=== PATIENT | female | born 1950 | race Caucasian/White ===

== ENCOUNTER → 2016-11-01 | Outpatient (CLI) | payer BC ==
[~2016-11-01] MED LIST: ACYCLOVIR; ADDR10T PO; BUPR150T7 PO; CATHETER FLUSH 10 ML SYR IV PRN; CHOL500026 PO; CLIN300C11 PO; CYAN1TAB50 SL; DOXY100C42 PO; DULO60CA6 PO; ESTROGEN PATCH; FENTERMINE; FLUC200T PO; HYDR200T46 PO; IOHEXOL 350 MG/ML 100 ML (OMNIPAQUE 350) VIAL IV ONE; LACT1CAP8 PO; LEVO500T78 PO; LEVO75TA57 PO; LEVOTHYROXINE; LIOT5TAB6 PO; MECL12.579 PO; MUPI15CR TP; NS 100 ML (IVPB) BAG IV ONE; ONDA-42 PO; PHEN37.555 PO; PREG50C PO; SPIR50TA27 PO; TOPI25CA2 PO; VIVELLE
--- NOTE | 2016-11-01 13:03 | Diagnostic Imaging Report ---
PROCEDURE: CT neck soft tissue with and without contrast. TECHNIQUE: Helically acquired axial images were obtained through the neck both before and after the administration of intravenous contrast. INDICATION: Elevated PTH. FINDINGS: The previous CT neck exam performed on 10/11/2015 failed to show any sign of an acute abnormality of the neck. There was opacification of the left maxillary antrum consistent with sinusitis. On this study, there is no mass or adenopathy identified to indicate an acute abnormality. There is no sign of a soft tissue fullness about the thyroid gland to suggest a parathyroid adenoma that could account for the patient's elevated PTH level. The thyroid gland is not enlarged but has somewhat of a heterogeneous texture. This appearance is similar to the prior exam. There is no sign of a hemodynamically significant stenosis of either carotid system. Both vertebral arteries were opacified. The left vertebral artery is dominant. The images through the skull base again show that the left maxillary antrum is opacified. A 1.0 x 1.1 cm cyst has developed in the left ethmoid air cells in the interval since the prior exam. The sinuses are otherwise generally clear. The orbits are symmetrical and within normal limits. The bone windows show no evidence for a fracture or for a destructive lesion. IMPRESSION: 1. There is no sign of a mass lesion, and there is no acute abnormality of the neck. 2. If clinical concern regarding a parathyroid adenoma persists and further imaging is desired, then a nuclear medicine sestamibi parathyroid scan would be recommended. 3. There is persistent severe left maxillary sinusitis. A small retention cyst has also developed in the left ethmoid sinus since the prior study. Dictated by: Dictated on workstation # [id number]
== END ==
LOC: RAD 11:03
PROVIDERS: ATTEND Nurse Practitioner Family
DX: J32.0 Chronic maxillary sinusitis (principal); J34.1 Cyst and mucocele of nose and nasal sinus; E21.3 Hyperparathyroidism, unspecified
CPT/HCPCS: 70492

== ENCOUNTER 2017-04-05 17:36 | Emergency (ER) | payer BC ==
[~2017-04-05] VITALS: Ht 165.1 cm; Wt 107.5 kg
[~2017-04-05 17:36] MED LIST changes: -CATHETER FLUSH 10 ML SYR IV PRN; -IOHEXOL 350 MG/ML 100 ML (OMNIPAQUE 350) VIAL IV ONE; -NS 100 ML (IVPB) BAG IV ONE
--- OUTSIDE RECORDS SUMMARY | 2017-04-05 17:41 | XMS REPORT | Continuity of Care Document ---
Author Author [facility] Organization [facility] Address Unknown Phone Unavailable Allergies Active Description Code Type Severity Reaction Onset Reported/Identified Relationship to Patient Clinical Status Yes Sulfa (Sulfonamide Antibiotics) [id number] Drug Allergy Mild N/A 2011 Medications There is no data. 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 05/05/2013 YOVANNY URRUTIA DO Ot 275.42 HYPERCALCEMIA 05/05/2013 YOVANNY URRUTIA DO Ot 276.51 DEHYDRATION 05/05/2013 YOVANNY URRUTIA DO Ot 278.00 OBESITY, NOS 05/05/2013 YOVANNY URRUTIA DO Ot 293.0 DELIRIUM DUE TO CONDITIONS CLASSIFIED EL 05/05/2013 YOVANNY URRUTIA DO Ot 309.81 POSTTRAUMATIC STRESS DISORDER 05/05/2013 YOVANNY URRUTIA DO Ot 599.0 URIN TRACT INFECTION NOS 05/05/2013 YOVANNY URRUTIA DO Ot 710.1 SYSTEMIC SCLEROSIS 05/05/2013 YOVANNY URRUTIA DO Ot 729.1 MYALGIA AND MYOSITIS NOS 05/05/2013 YOVANNY URRUTIA DO Ot 780.52 INSOMNIA, UNSPECIFIED 05/05/2013 YOVANNY URRUTIA DO Ot V85.31 BODY MASS INDEX 31.0-31.9, ADULT 08/30/2013 YOVANNY URRUTIA DO Ot 276.51 DEHYDRATION 09/29/2013 YOVANNY URRUTIA DO Ot 278.00 OBESITY, NOS 09/29/2013 YOVANNY URRUTIA DO Ot 790.29 OTHER ABNORMAL GLUCOSE 09/17/2015 URRUTIA, JOYCE L TILE CONDUIT LAYER Ot E86.0 DEHYDRATION 10/09/2015 RENANJOYCE L TILE CONDUIT LAYER Ot E86.0 DEHYDRATION 10/11/2015 ERIKA MCGUIRE DO Ot F45.8 OTHER SOMATOFORM DISORDERS 10/11/2015 SHAYLA POLLOCK ERIKA K Ot N76.0 ACUTE VAGINITIS 10/11/2015 ERIKA MCGUIRE DO Ot R22.1 LOCALIZED SWELLING, MASS AND LUMP, NECK 10/11/2015 JUNE MCGUIRE DOA Augustina Ot T37.0X5A ADVERSE EFFECT OF SULFONAMIDES, INITIAL 10/12/2015 Ot 611.72 LUMP OR MASS IN BREAST 10/12/2015 Ot V76.12 OTH SCREEN MAMMO-MALIGN NEOPLASM OF DAVID 10/12/2015 Ot 611.72 LUMP OR MASS IN BREAST 10/12/2015 Ot 610.0 SOLITARY CYST OF BREAST 10/12/2015 Ot 610.4 MAMMARY DUCT ECTASIA 10/12/2015 Ot 785.1 PALPITATIONS 10/12/2015 Ot 530.81 ESOPHAGEAL REFLUX 10/12/2015 RENAN JOYCE L TILE CONDUIT LAYER Ot 240.9 GOITER NOS 10/12/2015 RENAN JOYCE L TILE CONDUIT LAYER Ot 397.0 TRICUSPID VALVE DISEASE 10/12/2015 RENAN JOYCE L TILE CONDUIT LAYER Ot 785.1 PALPITATIONS 10/12/2015 RENANJOYCE L TILE CONDUIT LAYER Ot 486 PNEUMONIA, ORGANISM NOS 10/12/2015 RIDINGS, JOYCE C CLAIMS TECHNICIAN Ot 564.00 UNSPEC CONSTIPATION 10/12/2015 RIDTAMELA, JOYCE C CLAIMS TECHNICIAN Ot 789.01 ABDOMINAL PAIN, RIGHT UPPER QUADRANT 10/12/2015 JOEINGS, JOYCE C CLAIMS TECHNICIAN Ot 793.19 OTHER NONSPECIFIC ABNORMAL FINDING OF STAN 10/12/2015 RENAN JOYCE L TILE CONDUIT LAYER Ot 486 PNEUMONIA, ORGANISM NOS 10/12/2015 Ot 278.00 OBESITY, NOS 10/12/2015 Ot 790.29 OTHER ABNORMAL GLUCOSE 10/12/2015 Ot 719.41 JOINT PAIN- SHLDER 10/12/2015 JOYCE URRUTIA L TILE CONDUIT LAYER Ot E86.0 DEHYDRATION 10/13/2015 ERIKA MCGUIRE DO Ot F45.8 OTHER SOMATOFORM DISORDERS 10/13/2015 ERIKA MCGUIRE DO Ot N76.0 ACUTE VAGINITIS 10/13/2015 ERIKA MCGIURE DO Ot R22.1 LOCALIZED SWELLING, MASS AND LUMP, NECK 10/13/2015 ERIKA MCGUIRE DO Ot T37.0X5A ADVERSE EFFECT OF SULFONAMIDES, INITIAL 10/15/2015 JOYCE URRUTIA L TILE CONDUIT LAYER Ot E83.52 HYPERCALCEMIA 10/26/2015 Ot V76.12 10/26/2015 Ot 611.72 LUMP OR MASS IN BREAST 10/26/2015 Ot V76.12 OTH SCREEN MAMMO-MALIGN NEOPLASM OF DAVID 10/26/2015 Ot 611.72 LUMP OR MASS IN BREAST 10/26/2015 Ot 610.0 SOLITARY CYST OF BREAST 10/26/2015 Ot 610.4 MAMMARY DUCT ECTASIA 10/26/2015 Ot 785.1 PALPITATIONS 10/26/2015 Ot 530.81 ESOPHAGEAL REFLUX 10/26/2015 JOYCE URRUTIA TILE CONDUIT LAYER Ot 240.9 GOITER NOS 10/26/2015 JOYCE URRUTIA TILE CONDUIT LAYER Ot 397.0 TRICUSPID VALVE DISEASE 10/26/2015 JOYCE URRUTIA TILE CONDUIT LAYER Ot 785.1 PALPITATIONS 10/26/2015 JOYCE URRUTIA TILE CONDUIT LAYER Ot 486 PNEUMONIA, ORGANISM NOS 10/26/2015 RIDPAUL RAPPFERMIN Mcmanus CLAIMS TECHNICIAN Ot 564.00 UNSPEC CONSTIPATION 10/26/2015 JOYCE JESUS [place] CLAIMS TECHNICIAN Ot 789.01 ABDOMINAL PAIN, RIGHT UPPER QUADRANT 10/26/2015 JOEPAUL RAPPFERMIN Mcmanus CLAIMS TECHNICIAN Ot 793.19 OTHER NONSPECIFIC ABNORMAL FINDING OF STAN 10/26/2015 JOYCE URRUTIA TILE CONDUIT LAYER Ot 486 PNEUMONIA, ORGANISM NOS 10/26/2015 Ot 278.00 OBESITY, NOS 10/26/2015 Ot 790.29 OTHER ABNORMAL GLUCOSE 10/26/2015 Ot 719.41 JOINT PAIN- SHLDER 10/26/2015 JOYCE URRUTIA TILE CONDUIT LAYER Ot E86.0 DEHYDRATION 10/26/2015 ERIKA MCGUIRE DO Ot F45.8 OTHER SOMATOFORM DISORDERS 10/26/2015 ERIKA MCGUIRE DO Ot N76.0 ACUTE VAGINITIS 10/26/2015 ERIKA MCGUIRE DO Ot R22.1 LOCALIZED SWELLING, MASS AND LUMP, NECK 10/26/2015 ERIKA MCGUIRE DO Ot T37.0X5A ADVERSE EFFECT OF SULFONAMIDES, INITIAL 10/30/2015 JOYCE URRUTIA L TILE CONDUIT LAYER Ot E83.52 HYPERCALCEMIA 10/30/2015 JOYCE URRUTIA L TILE CONDUIT LAYER Ot E83.52 HYPERCALCEMIA 11/11/2015 ERIKA MCGUIRE DO Ot F45.8 OTHER SOMATOFORM DISORDERS 11/11/2015 ERIKA MCGUIRE DO Ot N76.0 ACUTE VAGINITIS 11/11/2015 ERIKA MCGUIRE DO Ot R22.1 LOCALIZED SWELLING, MASS AND LUMP, NECK 11/11/2015 ERIKA MCGUIRE DO Ot T37.0X5A ADVERSE EFFECT OF SULFONAMIDES, INITIAL 03/01/2016 Ot 785.1 PALPITATIONS 03/01/2016 Ot 530.81 ESOPHAGEAL REFLUX 03/01/2016 JOYCE URRUTIA L TILE CONDUIT LAYER Ot 240.9 GOITER NOS 03/01/2016 JOYCE URRUTIA TILE CONDUIT LAYER Ot 397.0 TRICUSPID VALVE DISEASE 03/01/2016 JOYCE URRUTIA TILE CONDUIT LAYER Ot 785.1 PALPITATIONS 03/01/2016 JOYCE URRUTIA TILE CONDUIT LAYER Ot 486 PNEUMONIA, ORGANISM NOS 03/01/2016 RIDJOYCE RAPP CLAIMS TECHNICIAN Ot 564.00 UNSPEC CONSTIPATION 03/01/2016 JOYCE JESUS CLAIMS TECHNICIAN Ot 789.01 ABDOMINAL PAIN, RIGHT UPPER QUADRANT 03/01/2016 JOYCE JEUSS CLAIMS TECHNICIAN Ot 793.19 OTHER NONSPECIFIC ABNORMAL FINDING OF STAN 03/01/2016 JOYCE URRUTIA L TILE CONDUIT LAYER Ot 486 PNEUMONIA, ORGANISM NOS 03/01/2016 Ot 278.00 OBESITY, NOS 03/01/2016 Ot 790.29 OTHER ABNORMAL GLUCOSE 03/01/2016 Ot 719.41 JOINT PAIN- SHLDER 03/01/2016 JOYCE URRUTIA L TILE CONDUIT LAYER Ot E86.0 DEHYDRATION 03/01/2016 JOYCE URRUTIA L TILE CONDUIT LAYER Ot E83.52 HYPERCALCEMIA 03/01/2016 JOYCE URRUTIA L TILE CONDUIT LAYER Ot E83.52 HYPERCALCEMIA 03/01/2016 JOYCE URRUTIA L TILE CONDUIT LAYER Ot E86.0 DEHYDRATION 03/07/2016 URRUTIAJOYCE MADRID TILE CONDUIT LAYER Ot E86.0 DEHYDRATION 03/09/2016 URRUTIAJOYCE MADRID Jayne TILE CONDUIT LAYER Ot E86.0 DEHYDRATION 05/24/2016 Ot 530.81 ESOPHAGEAL REFLUX 05/24/2016 URRUTIAJOYCE MADRID TILE CONDUIT LAYER Ot 240.9 GOITER NOS 05/24/2016 RENANJOYCE TILE CONDUIT LAYER Ot 397.0 TRICUSPID VALVE DISEASE 05/24/2016 RENAN JOYCE Jayne TILE CONDUIT LAYER Ot 785.1 PALPITATIONS 05/24/2016 URRUTIAJOYCE Jayne TILE CONDUIT LAYER Ot 486 PNEUMONIA, ORGANISM NOS 05/24/2016 RIDINGSJOYCE CLAIMS TECHNICIAN Ot 564.00 UNSPEC CONSTIPATION 05/24/2016 JOYCE JESUS CLAIMS TECHNICIAN Ot 789.01 ABDOMINAL PAIN, RIGHT UPPER QUADRANT 05/24/2016 JOYCE JESUS CLAIMS TECHNICIAN Ot 793.19 OTHER NONSPECIFIC ABNORMAL FINDING OF STAN 05/24/2016 RENAN JOYCE Jayne TILE CONDUIT LAYER Ot 486 PNEUMONIA, ORGANISM NOS 05/24/2016 Ot 278.00 OBESITY, NOS 05/24/2016 Ot 790.29 OTHER ABNORMAL GLUCOSE 05/24/2016 Ot 719.41 JOINT PAIN- SHLDER 05/24/2016 RENANJOYCE Jayne TILE CONDUIT LAYER Ot E86.0 DEHYDRATION 05/24/2016 URRUTIAJOYCE TILE CONDUIT LAYER Ot E83.52 HYPERCALCEMIA 05/24/2016 RENAN JOYCE Jyane TILE CONDUIT LAYER Ot E83.52 HYPERCALCEMIA 05/24/2016 RENAN JOYCE Jayne TILE CONDUIT LAYER Ot E86.0 DEHYDRATION 11/14/2016 RENAN JOYCE Jayne TILE CONDUIT LAYER Ot E21.3 HYPERPARATHYROIDISM, UNSPECIFIED 11/14/2016 RENAN JOYCE Jayne TILE CONDUIT LAYER Ot J32.0 CHRONIC MAXILLARY SINUSITIS 11/14/2016 JOYCE URRUTIA TILE CONDUIT LAYER Ot J34.1 CYST AND MUCOCELE OF NOSE AND NASAL SINU Procedures There is no data. Results There is no data. Encounters ACCT No. Visit Date/Time Discharge Status Pt. Type Provider Facility Loc./Unit Complaint [id number] 11/01/2016 11:03:00 11/01/2016 23:59:59 CLS Outpatient JOYCE URRUTIA TILE CONDUIT LAYER [facility] RAD ELEVATED PTH [id number] 03/01/2016 10:42:00 03/01/2016 23:59:59 CLS Outpatient JOYCE URRUTIA TILE CONDUIT LAYER [facility] SDC DEHYDRATION [id number] 10/12/2015 15:31:00 10/12/2015 23:59:59 CLS Outpatient JOYCE URRUTIA TILE CONDUIT LAYER [facility] LAB CALCIUM LEVEL UP [id number] 10/11/2015 10:04:00 10/11/2015 23:59:59 CLS Outpatient JOYCE URRUTIA TILE CONDUIT LAYER [facility] LAB ELEVATED CALCIUM [id number] 10/11/2015 09:47:00 10/11/2015 12:46:00 DIS Emergency SHAYLA ERIKA POLLOCK [facility] ER THROAT SWELLING [id number] 09/17/2015 11:33:00 09/17/2015 23:59:59 CLS Outpatient JOYCE URRUTIA TILE CONDUIT LAYER [facility] SDC DEHYDRATION [id number] 08/30/2013 09:16:00 08/30/2013 12:35:00 DIS [facility] [id number] 07/02/2013 11:10:00 07/02/2013 23:59:59 CLS Outpatient YOVANNY URRUTIA DO [facility] DSME DIABETES [id number] 05/04/2013 12:54:00 05/05/2013 11:03:00 DIS Inpatient YOVANNY URRUTIA DO [facility] 4TH CONFUSION/DRUG INTERACTION [id number] 03/29/2013 16:08:00 03/29/2013 23:59:59 CLS Outpatient JOYCE URRUTIA TILE CONDUIT LAYER [facility] RAD PNUEMONIA [id number] 03/22/2013 09:57:00 03/22/2013 23:59:59 CLS Outpatient JOYCE JESUS APRN [facility] RAD RUQ PAIN/ CONSTIPATION [id number] 11/16/2012 11:24:00 11/16/2012 23:59:59 CLS Outpatient JOYCE URRUTIA Jayne TILE CONDUIT LAYER [facility] RAD F/U PNEUMONIA [id number] 07/23/2012 10:47:00 07/23/2012 23:59:59 CLS Outpatient JOYCE URRUTIA TILE CONDUIT LAYER [facility] CARD PALPITATIONS, THYROMEGALLY [id number] 10/26/2015 11:22:00 Document Registration [id number] 10/12/2015 15:37:00 Document Registration [id number] 10/12/2015 15:36:00 Document Registration [id number] 05/14/2014 16:16:00 Document Registration [id number] 09/30/2013 10:00:00 Document Registration [id number] 06/18/2012 09:00:00 Document Registration [id number] 11/20/2011 11:08:00 Document Registration [id number] 11/08/2010 09:32:00 Document Registration [id number] 08/05/2010 12:47:00 Document Registration [id number] 08/02/2010 14:28:00 Document Registration [id number] 07/29/2010 09:47:00 Document Registration [id number] 07/15/2008 11:48:00 Document Registration
[2017-04-05] MEDS ORDERED: SPIR50TA2 (18:21)
[2017-04-05] MEDS ORDERED: LEVO50TA6 (18:21)
[2017-04-05] MEDS ORDERED: ALLO100T (18:21)
[2017-04-05] MEDS ORDERED: POTA10TA10 (18:21)
[2017-04-05] MEDS ORDERED: BUME1TAB4 (18:21)
[2017-04-05] MEDS ORDERED: HYDR-3816 (18:21)
[2017-04-05] MEDS ORDERED: NYST1000 PO (18:39)
--- NOTE | 2017-04-05 18:40 | ED General ---
General Chief Complaint: Oral/Throat Problems Stated Complaint: TROUBLE BREATHING Nursing Triage Note: PT TO ROOM 1 PT CO OF SOA AND DIFFICULTY SWALLOWING, PT WAS RELEASED FROM [facility] TODAY 1 DAY POST THYROIDECTOMY. PT HAS DANIS INTACT AND DRAINS INTACT. PT FACE FLUSHED. NO SOA OR RESP DISTRESS NOTED Nursing Sepsis Screen: No Definite Risk Source of Information: Patient, Family Exam Limitations: No Limitations History of Present Illness Time Seen by Provider: 18:08 Allergies and Home Medications Allergies Coded Allergies: Sulfa (Sulfonamide Antibiotics) (Verified Adverse Reaction, Mild, 11/20/11) Home Medications Allopurinol 100 Mg Tablet, (Reported) Bumetanide 1 Mg Tablet, (Reported) Cyanocobalamin/Folic Acid 1 Each Tab.subl, 1 EACH SL DAILY, #30 Prescribed by: MANSOOR DICK on 03/01/16 1100 Hydrocodone/Acetaminophen 1 Each Tablet, (Reported) Levothyroxine Sodium 50 Mcg Tablet, (Reported) Potassium Chloride 10 Meq Tablet.er, (Reported) Spironolactone 50 Mg Tablet, (Reported) Past Gywdkpl-Jasuqa-Cujmvr Hx Patient Social History Alcohol Use: Denies Use Recreational Drug Use: No Smoking Status: Never a Smoker Recent Foreign Travel: No Contact w/Someone Who Travel: No Recent Infectious Disease Expo: No Recent Hopitalizations: No Immunizations Up To Date Tetanus Booster (TDap): More than 5yrs PED Vaccines UTD: No Date of Pneumonia Vaccine: Mar 20, 2008 Seasonal Allergies Seasonal Allergies: No Surgeries History of Surgeries: Yes Surgeries: Hysterectomy, Thyroidectomy Respiratory History of Respiratory Disorde: Yes ("I GET PNUEMONIA ALL OF THE TIME.") Respiratory Disorders: Pneumonia, Sleep Apnea Cardiovascular History of Cardiac Disorders: Yes Cardiac Disorders: Hypertension Neurological History of Neurological Disord: Yes Neurological Disorders: Headaches /Migraines Reproductive System Hx Reproductive Disorders: No Sexually Transmitted Disease: No HIV/AIDS: No CAR DRIVER History: Hysterectomy Genitourinary Genitourinary Disorders: Bladder Infection Gastrointestinal History of Gastrointestinal Di: Yes Gastrointestinal Disorders: Gastroesophageal Reflux, Chronic Constipation, Diverticulosis, Hiatal Hernia, Irritable Bowel Musculoskeletal History of Musculoskeletal Dis: Yes (CREST SYNDROME; FIBROMYALGIA; LYME DISEASE ) Musculoskeletal Disorders: Fibromyalgia, Back Injury Endocrine History of Endocrine Disorders: Yes (DAVID SYNDROME) Endocrine Disorders: Hypothyroidsim HEENT HEENT Disorders: Macular Degeneration Cancer History of Cancer: No Psychosocial History of Psychiatric Problem: Yes Behavioral Health Disorders: Anxiety, Depression Integumentary History of Skin or Integumenta: No Blood Transfusions History of Blood Disorders: No Family Medical History Family Medial History: Cancer 09 SISTER (LEUKEMIA) Congestive heart failure 09 SISTER Family history: Arthritis 09 SISTER (RA) Family history: Breast disease 09 SISTER (METASTASIS) Family history: Diabetes mellitus 03 FATHER 09 SISTER Family history: Hypertension 09 SISTER Heart disease 03 MOTHER (ENLARGED HEART) History of - disorder 09 BROTHER (RUPTURED APPENDIX) History of - respiratory disease 03 MOTHER (EXPOSURE TO TOXIC SMOKE THAT CAUSED PROBLEMS) Myocardial infarction 03 FATHER Physical Exam Vital Signs Vital Sign - Last 12Hours 04/05/17 17:36 Temp 98.1 Pulse 80 Resp 32 B/P (MAP) 144/71 (95) Pulse Ox 96 Capillary Refill : Less Than 3 Seconds Progress/Results/Core Measures Suspected Sepsis Recent Fever Within 48 Hours: No Infection Criteria Present: None New/Unexplained Altered Menta: No Sepsis Screen: No Definite Risk Sepsis Diagnosis: SIRS Temperature:98.1 Pulse: 80 Respiratory Rate: 32 Blood Pressure 144 /71 Mean: 95 Results/Orders My Orders Orders - DAYDAY LOBATO MD Ketorolac Injection (Toradol Injection) (04/05/17 18:45) Vital Signs/I&O Vital Sign - Last 12Hours 04/05/17 17:36 Temp 98.1 Pulse 80 Resp 32 B/P (MAP) 144/71 (95) Pulse Ox 96 Capillary Refill : Less Than 3 Seconds Blood Pressure Mean: 95 Departure Impression Impression: Primary Impression: Postoperative pain Additional Impression: Odynophagia Disposition: 01 HOME, SELF-CARE Condition: Improved Departure-Patient Inst. Decision time for Depature: 18:35 Referrals: YOVANNY URRUTIA DO (PCP/Family) Primary Care Physician Patient Instructions: Postoperative Pain (DC) Add. Discharge Instructions: You may use hydrocodone up to one tablet every 4 hours as needed for pain and/ or ibuprofen up to 600 mg every 6 hours as needed for pain. You may crush these tablets or use a liquid form. Try to stay in an upright position as often as possible to reduce swelling in your neck and throat. If your throat pain is not improving over the next day or two, consider trying a nystatin swish and swallow. Contact your surgeon if you're not improving as expected. Return to the emergency room promptly or call 911 if you or unable to swallow liquids or if you develop difficulty breathing. All discharge instructions reviewed with patient and/or family. Voiced understanding. Scripts Nystatin (Nystatin) 100,000 Unit/1 Ml Oral.susp 5 ML PO QID, #100 ML Swish/gargle for up to one minute and then swallow. Prov: DAYDAY LOBATO MD 04/05/17 DAYDAY LOBATO MD Apr 05, 2017 18:40
[2017-04-05] MEDS ORDERED: KETOROLAC 30 MG/ML VIAL IM ONE (18:45)
[2017-04-05 18:57] VITALS: BP 144/71
== END 2017-04-05 18:57 | disposition home or self-care (01) ==
LOC: EDUNIT# 17:36 → ER 17:37
DX: G89.18 Other acute postprocedural pain (principal); R13.10 Dysphagia, unspecified; G47.30 Sleep apnea, unspecified; I10 Essential (primary) hypertension; G43.909 Migraine, unspecified, not intractable, without status migrainosus; K21.9 Gastro-esophageal reflux disease without esophagitis; E03.9 Hypothyroidism, unspecified; E06.3 Autoimmune thyroiditis; F41.9 Anxiety disorder, unspecified; F32.9 Major depressive disorder, single episode, unspecified; Z80.6 Family history of leukemia; Z82.49 Family history of ischemic heart disease and other diseases of the circulatory system; Z87.19 Personal history of other diseases of the digestive system; Z87.448 Personal history of other diseases of urinary system; Z87.01 Personal history of pneumonia (recurrent); Z90.710 Acquired absence of both cervix and uterus; Z90.89 Acquired absence of other organs
CPT/HCPCS: 99284

== ENCOUNTER → 2017-06-05 | Outpatient (CLI) | payer BC ==
[~2017-06-05] MED LIST changes: +ALLO100T; +BUME1TAB4; +HYDR-34; +LEVO50TA6; +NYST1000 PO; +POTA10TA10; +SPIR50TA2
--- NOTE | 2017-06-05 13:10 | Diagnostic Imaging Report ---
INDICATION: Routine screening. COMPARISON: 07/29/2010. TECHNIQUE: Screening digital mammography was performed bilaterally with a Computer Aided Detection (CAD) system. FINDINGS: Both breasts remain heterogeneously dense, limiting the sensitivity of mammography. The overall parenchymal pattern appears to be stable. An intramammary lymph node in the outer aspect of the left breast is stable. Small well defined nodular densities in the outer right breast are stable and were previously shown to represent cysts. No new mass or malignant appearing microcalcifications are seen. The axillae are unremarkable. IMPRESSION: No mammographic features suspicious for malignancy are identified. ACR BI-RADS Category 2: Benign findings. Result letter will be mailed to the patient. Note: At least 10% of breast cancer is not imaged by mammography. Dictated by: Dictated on workstation # [id number]
== END ==
LOC: RAD 10:20
PROVIDERS: ATTEND Internal Medicine
DX: Z12.31 Encounter for screening mammogram for malignant neoplasm of breast (principal)
CPT/HCPCS: 77067

== ENCOUNTER → 2022-10-13 | Outpatient (CLI) | payer MEDICARE, OTHER ==
[~2022-10-13] MED LIST changes: -BUME1TAB4; +BUME1TAB8; +CLIN-144 PO; -CLIN300C11 PO; -SPIR50TA2; +SPIR50TA4
--- NOTE | 2022-10-14 13:04 | Diagnostic Imaging Report ---
Bilateral digital 2-D and 3-D screening with CAD. The current study was also evaluated with a Computer Aided Detection (CAD) system. COMPARISON: 05/2017 FINDINGS: density 3 There is new asymmetry mid depth right breast laterally on both the 2-D as well as a 3-D tomosynthesis views. No corresponding abnormality however in the MLO orientation is found and this likely reflects superimposition given its single view presentation. Its appearance and change itself warrant further workup. A medial lateral CC rolled views are recommended as well as spot compression over the density in the CC orientation and a 90 degree lateral medial film recommended. Should the asymmetry fail to resolve with recommended diagnostic views targeted ultrasound at that time may be of benefit. The left mammogram is stable and negative there are no microcalcifications. IMPRESSION: Diagnostic views and possible ultrasound of right breast asymmetry recommended. BI-RADS Category 0 ACR BI-RADS Category 0: Incomplete. (Needs additional imaging evaluation). Result letter will be mailed to the patient. Note: At least 10% of breast cancer is not imaged by mammography. Dictated by: Dictated on workstation # [id number]
== END ==
LOC: RAD 10:29
PROVIDERS: ATTEND Nurse Practitioner Family
DX: Z12.31 Encounter for screening mammogram for malignant neoplasm of breast (principal)
CPT/HCPCS: 77063; 77067

== ENCOUNTER → 2022-10-24 | Outpatient (CLI) | payer MEDICARE, OTHER ==
--- NOTE | 2022-10-24 13:50 | Diagnostic Imaging Report ---
INDICATION: Right breast density. Patient presents for additional views. Correlation is made with screening study from 10/13/2022. Unilateral right 2-D and 3-D diagnostic mammography was performed. This included rolled CC views, spot compression CC views as well as spot compression mediolateral and conventional mediolateral views. Additional views show persistent density in the upper outer right breast mid depth approximately 8 cm from the nipple. There does appear to be some architectural distortion as well. No malignant-appearing microcalcifications are seen. IMPRESSION: Persistent density and possible architectural distortion upper outer right breast mid depth. Further evaluation with ultrasound is recommended and will be performed today. ACR BI-RADS Category 0: Incomplete. (Needs additional imaging evaluation). Result letter will be mailed to the patient. Note: At least 10% of breast cancer is not imaged by mammography. BI-RADS Category 0 Dictated by: Dictated on workstation # [id number]
--- NOTE | 2022-10-24 15:40 | Diagnostic Imaging Report ---
INDICATION: Right breast density. Correlation is made with diagnostic mammogram earlier same day. Interrogation of the upper outer right breast was performed. There is an irregular hypoechoic nodule with shadowing at the 11 o'clock location of the right breast, 6 cm from the nipple measuring 4 mm x 8 mm x 6 mm. This likely accounts for the mammographic density. This is concerning for a small breast malignancy. No other masses are seen. The right axilla is unremarkable. IMPRESSION: Irregular hypoechoic nodule at 11 o'clock location right breast, 6 cm from the nipple, likely accounting for the mammographic density. This is concerning for a small breast malignancy and tissue sampling would be recommended. This would be amenable to ultrasound-guided core biopsy. ACR BI-RADS Category 4: Suspicious abnormality. Result letter will be mailed to the patient. Note: At least 10% of breast cancer is not imaged by mammography. BI-RADS Category 4 Dictated by: Dictated on workstation # [id number]
== END ==
LOC: RAD 12:54
PROVIDERS: ATTEND Nurse Practitioner Family
DX: N63.11 Unspecified lump in the right breast, upper outer quadrant (principal)
CPT/HCPCS: 76641; 77065; G0279

== ENCOUNTER → 2022-10-25 | Outpatient (CLI) | payer MEDICARE, OTHER ==
--- NOTE | 2022-10-25 10:12 | Diagnostic Imaging Report ---
INDICATION: Postmenopausal screening COMPARISON: 10/16/2000 FINDINGS: AP Spine L1-L4: [BMD (g/cm2): 1.194] [T-Score: -0.1] [Z-Score: 0.6] [BMD Previous: 1.219] [BMD % Change: -2.1] LT Hip Neck: [BMD (g/cm2): 0.716] [T-Score: -2.3] [Z-Score: -1.2] LT Hip Total: [BMD (g/cm2):0.919] [T-Score:-0.7] [Z-Score: 0.1] [BMD Previous: 0.886] [BMD % Change: 3.7] RT Hip Neck: [BMD (g/cm2):0.751] [T-Score:-2.1] [Z-Score:-1.0] RT Hip Total: [BMD (g/cm2):0.949] [T-score:-0.5] [Z-Score:0.4] [BMD Previous:0.915] [BMD % Change:3.7*] *Indicates significant change from prior examination based on 95% confidence level. World Health Organization criteria for BMD interpretation classify patients as Normal (T-score at or above -1.0), Osteopenic (T-score between -1.0 and -2.5) or Osteoporotic (T-score at or below -2.5). LIMITATIONS AND MODIFICATION: None. FRACTURE RISK (FRAX SCORE): The ten year probability of (%): Major Osteoporotic Fracture: [13.2] Hip Fracture: [3.1] IMPRESSION: 1. Osteopenia (Low bone mass). 2. There has been a statistically significant increase in BMD since prior exam, detailed above. 3. See below National Osteoporosis Foundation guidelines on when to potentially initiate pharmacologic therapy. Based on the National Osteoporosis Foundation Guidelines, pharmacologic treatment should be initiated in any of the following, unless clinical conditions suggest otherwise: * Any patient with prior fragility fracture of the hip or vertebrae. A spine fracture indicates 5X risk for subsequent spine fracture and 2X risk for subsequent hip fracture. * Osteoporosis (T-score <-2.5). * Postmenopausal women and men age 50 and older with low bone mass/osteopenia (T-score between -1.0 and -2.5) by DXA and 10-year major osteoporotic fracture greater than 20% or a 10-year probability of hip fracture greater than 3%. These fracture risks are supplied above in the FRAX score, if applicable. * Clinician judgement and/or patient preferences may indicate treatment for people with 10-year fracture probabilities above or below these levels. Dictated by: Dictated on workstation # [id number]
== END ==
LOC: RAD 09:18
PROVIDERS: ATTEND Nurse Practitioner Family
DX: M85.80 Other specified disorders of bone density and structure, unspecified site (principal)
CPT/HCPCS: 77080

== ENCOUNTER → 2022-10-28 | Outpatient (CLI) | payer MEDICARE, OTHER ==
[~2022-10-28] VITALS: Ht 165.1 cm; Wt 95.0 kg
[~2022-10-28] MED LIST changes: +LIDOCAINE 1% INJ 10 ML VIAL INJ ONE
--- NOTE | 2022-10-28 10:40 | Diagnostic Imaging Report ---
INDICATION: Right breast mass. Patient presents for ultrasound-guided biopsy. Patient was brought to the ultrasound room and placed on the table in the supine position. Ultrasound imaging of the right breast was performed to evaluate appropriate entry site. Right breast was then prepped and draped in usual sterile fashion. Small amount of 1% lidocaine was utilized for local anesthesia. Total of 4 passes were made into the ill-defined hypoechoic mass 11:00 location of the right breast utilizing a 14-gauge Achieve needle. Core biopsies were obtained. Marker clip was then deployed. Hemostasis was obtained using manual compression. Patient tolerated the procedure well and was sent for post procedure mammogram in satisfactory condition. IMPRESSION: Successful ultrasound-guided core biopsy of a hypoechoic mass 11:00 location right breast. Pathology results are currently pending. Dictated by: Dictated on workstation # [id number]
--- NOTE | 2022-10-28 12:39 | Diagnostic Imaging Report ---
INDICATION: Right breast nodule, status post ultrasound-guided biopsy. Unilateral right 2-D CC and ML mammography was performed after patient underwent ultrasound-guided biopsy. There is a marker clip in the upper slightly outer aspect of the right breast at mid to posterior depth, status post biopsy. IMPRESSION: Marker clip placement, as described. Dictated by: Dictated on workstation # [id number]
== END ==
LOC: RAD 08:17
PROVIDERS: ATTEND Nurse Practitioner Family
DX: N63.11 Unspecified lump in the right breast, upper outer quadrant (principal); Z97.8 Presence of other specified devices
CPT/HCPCS: 19083; 77065; A4648; G0279